=== PATIENT | male | born 1975 | race Caucasian/White ===

== ENCOUNTER 2020-05-13 21:12 | Emergency (ER) | payer MEDICAID ==
[~2020-05-13] VITALS: Ht 182.9 cm; Wt 104.3 kg
[2020-05-13 21:16] VITALS: BP_SYST 118
[2020-05-13] MEDS ORDERED: NACL 0.9% 1,000 ML IV ONE (21:35)
[2020-05-13 21:51] LABS: BASOPHILS # (AUTO) 0.1 K/uL (0.0-0.2); EOSINOPHILS # (AUTO) 0.5 K/uL (0.0-0.4); EOSINOPHILS % (AUTO) 3.8 % (0.0-4.0); HEMATOCRIT 50.6 % (36-54); HEMOGLOBIN 16.9 g/dL (14.0-18.0); LYMPHOCYTES # (AUTO) 3.6 K/uL (1.0-5.5); LYMPHOCYTES % (AUTO) 29.8 % (20.5-51.5); MEAN CORPUSCULAR HEMOGLOBIN 30 pg (27-31); MEAN CORPUSCULAR HGB CONC 33 % (32-36); MEAN CORPUSCULAR VOLUME 89 fL (79.0-98.0); MONOCYTES # (AUTO) 1.1 K/uL (0.0-1.0); MONOCYTES % (AUTO) 8.7 % (1.7-9.3); NEUTROPHILS # (AUTO) 6.9 K/uL (1.8-7.7); NEUTROPHILS % (AUTO) 56.7 % (40.0-70.0); PLATELET COUNT (AUTO) 374 K/uL (130-430); RED BLOOD CELL COUNT(AUTO) 5.67 MIL/uL (4.2-6.2); WHITE BLOOD COUNT (AUTO) 12.2 K/uL (4.8-10.8)
[2020-05-13 22:01] LABS: CALCIUM 10.3 mg/dL (8.4-11.0); CREATININE 0.92 mg/dL (0.55-1.30); POTASSIUM 3.7 mmol/L (3.5-5.1)
[2020-05-13 22:02] LABS: PROTHROMBIN TIME 10.4 SECS (9.5-12.5)
[2020-05-13 22:07] LABS: ALBUMIN 3.8 g/dL (3.4-4.8); TOTAL BILIRUBIN 0.4 mg/dL (0.0-1.0)
[2020-05-13] MEDS ORDERED: KETOROLAC TROMETHAMINE 30 MG VIAL IVP ONE (22:45)
[2020-05-13 23:34] VITALS: BP_SYST 124
== END 2020-05-13 23:34 | disposition home or self-care (01) ==
LOC: SED 21:12
DX: R10.84 Generalized abdominal pain (principal); Z87.442 Personal history of urinary calculi; Z88.0 Allergy status to penicillin
CPT/HCPCS: 36415; 74176; 80053; 82550; 83605; 83690; 84484; 85025; 85379; 85610; 87040; 93005; 96361; 96374; 99285; J1885; J7030

== ENCOUNTER 2020-12-18 05:14 | Inpatient (IN) | payer MEDICAID, SELFPAY ==
[~2020-12-18] VITALS: Ht 182.9 cm; Wt 88.0 kg
[2020-12-18 05:20] VITALS: BP_SYST 120
[2020-12-18] MEDS ORDERED: NACL 0.9% 1,000 ML IV ONE (06:00)
[2020-12-18] MEDS ORDERED: KETOROLAC TROMETHAMINE 30 MG VIAL IVP ONE (06:00)
[2020-12-18 06:26] LABS: BASOPHILS # (AUTO) 0.1 K/uL (0.0-0.2); BASOPHILS % (AUTO) 0.7 % (0.0-2.0); EOSINOPHILS # (AUTO) 0.4 K/uL (0.0-0.4); EOSINOPHILS % (AUTO) 3.1 % (0.0-4.0); HEMATOCRIT 52.4 % (36-54); HEMOGLOBIN 17.5 g/dL (14.0-18.0); LYMPHOCYTES # (AUTO) 2.6 K/uL (1.0-5.5); LYMPHOCYTES % (AUTO) 22.3 % (20.5-51.5); MEAN CORPUSCULAR HEMOGLOBIN 30 pg (27-31); MEAN CORPUSCULAR HGB CONC 33 % (32-36); MEAN CORPUSCULAR VOLUME 89 fL (79.0-98.0); MONOCYTES # (AUTO) 0.9 K/uL (0.0-1.0); MONOCYTES % (AUTO) 7.9 % (1.7-9.3); NEUTROPHILS # (AUTO) 7.6 K/uL (1.8-7.7); PLATELET COUNT (AUTO) 356 K/uL (130-430); RED BLOOD CELL COUNT(AUTO) 5.92 MIL/uL (4.2-6.2); RED CELL DISTRIBUTION WIDTH 13.4 % (9.0-15.0); WHITE BLOOD COUNT (AUTO) 11.4 K/uL (4.8-10.8)
[2020-12-18 06:32] LABS: CALCIUM 9.3 mg/dL (8.4-11.0); CREATININE 1.05 mg/dL (0.55-1.30); POTASSIUM 3.9 mmol/L (3.5-5.1)
[2020-12-18 06:37] LABS: ALBUMIN 3.7 g/dL (3.4-4.8); TOTAL BILIRUBIN 0.2 mg/dL (0.0-1.0)
[2020-12-18 09:56] VITALS: BP_SYST 148
[2020-12-18] MEDS: METOCLOPRAMIDE HCL 10 MG/2 ML VIAL IVP SCH ×2 (11:18→17:21)
[2020-12-18] MEDS ORDERED: MILK OF MAGNESIA 30 ML UDC PO PRN (14:30)
[2020-12-18] MEDS ORDERED: MILK OF MAGNESIA 30 ML UDC PO ONE (14:30)
[2020-12-18] MEDS ORDERED: ONDANSETRON HCL 4 MG/2 ML VIAL IVP PRN ×2 (14:30→16:30)
[2020-12-18] MEDS ORDERED: PANTOPRAZOLE SODIUM 40 MG/VIAL (PROTONIX) IVP ONE (16:00)
[2020-12-18] MEDS ORDERED: NALOXONE HCL 0.4 MG/ML AMP (NARCAN) IVP PRN (16:30)
[2020-12-18] MEDS ORDERED: MORPHINE 2 MG/ML INJ. SYRINGE IVP PRN (16:30)
[2020-12-18] MEDS ORDERED: MAGNESIUM CITRATE 300 ML ORAL SOLUTION PO ONE (16:30)
[2020-12-18] MEDS ORDERED: ACETAMINOPHEN 325 MG TABLET PO PRN (16:30)
[2020-12-18] MEDS ORDERED: DIPHENHYDRAMINE INJ 50 MG/ML VIAL IVP PRN (16:30)
[2020-12-18 16:31] VITALS: BP_SYST 121
[2020-12-18] MEDS: LR 1,000 ML IV SCH (16:47)
[2020-12-18 17:09] LABS: BILIRUBIN,URINE NEGATIVE (NEGATIVE); BLOOD, URINE NEGATIVE (NEGATIVE); CLARITY/URINE CLEAR (CLEAR); COLOR,URINE YELLOW (YELLOW); GLUCOSE,URINE 2+ (NEGATIVE); KETONES,URINE NEGATIVE (NEGATIVE); LEUKOCYTE ESTERASE ,URINE NEGATIVE (NEGATIVE); NITRITE, URINE NEGATIVE (NEGATIVE); PH,URINE 5.5 (5.0-8.0); PROTEIN URINE NEGATIVE (NEGATIVE); UROBILINOGEN,URINE 0.2 (0.2-1.0)
[2020-12-18 17:13] LABS: RBC,URINE 0-3 /HPF (0-3); WBC,URINE 0-3 /HPF (0-3)
[2020-12-18 17:14] LABS: BACTERIA,URINE RARE /HPF (None Seen); BARBITURATE, URINE NEGATIVE (NEG <=200); BENZODIAZEPINE, URINE NEGATIVE (NEG <=150); CANNABINOID, URINE NEGATIVE (NEG <=50); COCAINE, URINE NEGATIVE (NEG <=150); METHAMPHETAMINES SCREEN,URINE POSITIVE (NEG <=500); MUCUS,URINE None Seen /LPF (None Seen); OPIATE, URINE NEGATIVE (NEG <=100); PHENCYCLIDINE SCREEN,URINE NEGATIVE (NEG <=25); UR TRICYCLIC ANTIDEPRESSANTS NEGATIVE (NEG <=300); URINE AMPHETAMINE POSITIVE (NEG <=500); URINE METHADONE NEGATIVE (NEG <=200); URINE OXYCODONE SCREEN NEGATIVE (NEG <=100); URINE PROPOXYPHENE SCREEN NEGATIVE (NEG <=300)
[2020-12-18 20:00] VITALS: BP_SYST 109
[2020-12-18] MEDS: PANTOPRAZOLE SODIUM 40 MG/VIAL (PROTONIX) IVP SCH (20:13)
[2020-12-18] MEDS: MORPHINE 4 MG/ML INJ. SYRINGE IVP PRN (20:15)
[2020-12-18] MEDS ORDERED: MINERAL OIL 30 ML UDC PO ONE (21:15)
[2020-12-19 00:17] VITALS: BP_SYST 110
[2020-12-19] MEDS: METOCLOPRAMIDE HCL 10 MG/2 ML VIAL IVP SCH ×4 (00:33→17:57)
[2020-12-19] MEDS: LR 1,000 ML IV SCH ×3 (02:01→21:26)
[2020-12-19 06:36] LABS: BASOPHILS # (AUTO) 0.1 K/uL (0.0-0.2); BASOPHILS % (AUTO) 1.1 % (0.0-2.0); EOSINOPHILS # (AUTO) 0.5 K/uL (0.0-0.4); EOSINOPHILS % (AUTO) 4.4 % (0.0-4.0); HEMATOCRIT 46.2 % (36-54); HEMOGLOBIN 15.3 g/dL (14.0-18.0); LYMPHOCYTES # (AUTO) 4.8 K/uL (1.0-5.5); LYMPHOCYTES % (AUTO) 42.3 % (20.5-51.5); MEAN CORPUSCULAR HEMOGLOBIN 30 pg (27-31); MEAN CORPUSCULAR HGB CONC 33 % (32-36); MEAN CORPUSCULAR VOLUME 89 fL (79.0-98.0); MONOCYTES # (AUTO) 1.1 K/uL (0.0-1.0); MONOCYTES % (AUTO) 10.1 % (1.7-9.3); NEUTROPHILS # (AUTO) 4.7 K/uL (1.8-7.7); NEUTROPHILS % (AUTO) 42.1 % (40.0-70.0); PLATELET COUNT (AUTO) 319 K/uL (130-430); RED BLOOD CELL COUNT(AUTO) 5.17 MIL/uL (4.2-6.2); RED CELL DISTRIBUTION WIDTH 13.4 % (9.0-15.0); WHITE BLOOD COUNT (AUTO) 11.2 K/uL (4.8-10.8)
[2020-12-19 07:10] LABS: ALBUMIN 2.9 g/dL (3.4-4.8); CALCIUM 8.2 mg/dL (8.4-11.0); CREATININE 0.92 mg/dL (0.55-1.30); POTASSIUM 4.5 mmol/L (3.5-5.1); THYROID STIMULATING HORMONE 3.89 uIu/mL (0.36-3.74); TOTAL BILIRUBIN 0.5 mg/dL (0.0-1.0)
[2020-12-19 08:56] VITALS: BP_SYST 120
[2020-12-19] MEDS: PANTOPRAZOLE SODIUM 40 MG/VIAL (PROTONIX) IVP SCH ×2 (08:56→21:25)
[2020-12-19] MEDS: MORPHINE 4 MG/ML INJ. SYRINGE IVP PRN ×2 (09:04→15:43)
[2020-12-19] MEDS ORDERED: BISACODYL 5 MG TABLET.DR (DULCOLAX) PO ONE (17:00)
[2020-12-19] MEDS ORDERED: GOLYTELY / COLYTE SOLUTION 4 LITERS PO ONE (18:00)
[2020-12-19 20:00] VITALS: BP_SYST 127
[2020-12-20] MEDS: METOCLOPRAMIDE HCL 10 MG/2 ML VIAL IVP SCH ×3 (06:33→11:38)
[2020-12-20 06:58] LABS: BASOPHILS # (AUTO) 0.1 K/uL (0.0-0.2); EOSINOPHILS # (AUTO) 0.5 K/uL (0.0-0.4); HEMATOCRIT 45.7 % (36-54); HEMOGLOBIN 15.5 g/dL (14.0-18.0); LYMPHOCYTES # (AUTO) 3.1 K/uL (1.0-5.5); MEAN CORPUSCULAR HEMOGLOBIN 30 pg (27-31); MEAN CORPUSCULAR HGB CONC 34 % (32-36); MEAN CORPUSCULAR VOLUME 89 fL (79.0-98.0); MONOCYTES % (AUTO) 10.1 % (1.7-9.3); NEUTROPHILS % (AUTO) 51.9 % (40.0-70.0); PLATELET COUNT (AUTO) 305 K/uL (130-430); RED BLOOD CELL COUNT(AUTO) 5.13 MIL/uL (4.2-6.2); RED CELL DISTRIBUTION WIDTH 13.1 % (9.0-15.0); WHITE BLOOD COUNT (AUTO) 9.6 K/uL (4.8-10.8)
[2020-12-20] MEDS ORDERED: SIMETHICONE 40 MG/0.6 ML ML ONE (07:11)
[2020-12-20] MEDS ORDERED: MEPERIDINE 100 MG INJ. 100 MG/ML VIAL ONE (07:12)
[2020-12-20] MEDS ORDERED: MIDAZOLAM HCL 5 MG/5 ML VIAL ONE (07:12)
[2020-12-20 07:20] LABS: PROTHROMBIN TIME 10.4 SECS (9.5-12.5)
[2020-12-20 07:42] LABS: CALCIUM 8.9 mg/dL (8.4-11.0); CREATININE 1.03 mg/dL (0.55-1.30); POTASSIUM 4.2 mmol/L (3.5-5.1)
[2020-12-20 08:50] LABS: C-REACTIVE PROTEIN QUANT 1.8 mg/dL (0-0.5)
[2020-12-20] MEDS ORDERED: DOCUSATE SODIUM 100 MG CAPSULE PO SCH (09:00)
[2020-12-20] MEDS ORDERED: POLYETHYLENE GLYCOL 3350, 17 GM/ POWD.PACK PO SCH (09:00)
[2020-12-20] MEDS: LR 1,000 ML IV SCH (09:00)
[2020-12-20] MEDS: PANTOPRAZOLE SODIUM 40 MG/VIAL (PROTONIX) IVP SCH (09:00)
[2020-12-20 09:26] LABS: ERYTHROCYTE SEDIMENTATION RATE 7 MM/HR (0-15)
[2020-12-20 10:00] VITALS: BP_SYST 130
[2020-12-20] MEDS ORDERED: PRO40 PO (14:24)
[2020-12-20] MEDS ORDERED: DOCU-144 PO (14:25)
[2020-12-20 14:27] VITALS: BP_SYST 129
== END 2020-12-20 14:45 | disposition home or self-care (01) | DRG 241 ==
LOC: SED 05:14 → SMU 09:16 → OBSVTOIN 12-19 09:46
PROVIDERS: ADMIT Internal Medicine; ATTEND Internal Medicine
PROC: 0DBK8ZZ Excision of Ascending Colon, Via Natural or Artificial Opening Endoscopic (ICD-10-PCS; 2020-12-20)
PROC: 0DB98ZX Excision of Duodenum, Via Natural or Artificial Opening Endoscopic, Diagnostic (ICD-10-PCS; principal; 2020-12-20 08:30)
PROC: 0DB78ZX Excision of Stomach, Pylorus, Via Natural or Artificial Opening Endoscopic, Diagnostic (ICD-10-PCS; 2020-12-20 08:30)
DX: K29.70 Gastritis, unspecified, without bleeding (principal); K21.9 Gastro-esophageal reflux disease without esophagitis; K26.9 Duodenal ulcer, unspecified as acute or chronic, without hemorrhage or perforation; F15.10 Other stimulant abuse, uncomplicated; K59.09 Other constipation; Z20.822 Contact with and (suspected) exposure to COVID-19; K63.5 Polyp of colon; K64.8 Other hemorrhoids; Z88.0 Allergy status to penicillin; Z87.442 Personal history of urinary calculi; Q43.8 Other specified congenital malformations of intestine; R65.10 Systemic inflammatory response syndrome (SIRS) of non-infectious origin without acute organ dysfunction
CPT/HCPCS: 36415; 43239; 45385; 71045; 76376; 76700-TC; 80048; 80053; 80061; 80307; 81000-TC; 82150-TC; 83036; 83690-TC; 84443-TC; 84484; 85025; 85379; 85610-TC; 85651-TC; 86140; 87081; 88305; 88312; 88313; 93005; 96361; 96374; C9113; G0378; J2175; J2250; J2270; J2765; J7120

== ENCOUNTER 2021-04-20 03:57 | Emergency (ER) | payer MEDICAID, SELFPAY ==
[~2021-04-20] VITALS: Ht 182.9 cm; Wt 90.7 kg
[~2021-04-20 03:57] MED LIST: DOCU-144 PO; PRO40 PO
[2021-04-20 04:10] VITALS: BP_SYST 114
[2021-04-20] MEDS ORDERED: HYDROcodone/ACETAMIN 7.5-325 MG TAB PO ONE (04:45)
[2021-04-20 06:00] VITALS: BP_SYST 114
== END 2021-04-20 06:00 | disposition home or self-care (01) ==
LOC: SED 03:57
DX: S83.201A Bucket-handle tear of unspecified meniscus, current injury, left knee, initial encounter (principal); F12.90 Cannabis use, unspecified, uncomplicated; F17.290 Nicotine dependence, other tobacco product, uncomplicated; W18.39XA Other fall on same level, initial encounter; Y93.89 Activity, other specified; Y92.89 Other specified places as the place of occurrence of the external cause; Y99.8 Other external cause status
CPT/HCPCS: 73564; 99283